=== PATIENT | male | born 1955 | race Caucasian/White ===

== ENCOUNTER 2024-06-21 05:18 | Observation (INO) ==
--- NOTE | 2024-05-29 12:37 | PAT Medication Instructions ---
Medication Instructions Date of Service May 29, 2024 Home Medications apixaban 5 mg tablet (Eliquis) 5 mg PO BID cholecalciferol (vitamin D3) 125 mcg (5,000 unit) tablet (Vitamin D3) 125 mcg PO DAILY ezetimibe 10 mg tablet 10 mg PO QAM furosemide 20 mg tablet (Lasix) 20 mg PO QAM loratadine 10 mg tablet 10 mg PO QAM losartan 25 mg tablet (Cozaar) 25 mg PO QAM metoprolol tartrate 100 mg tablet 150 mg PO QAM naltrexone 8 mg-bupropion 90 mg tablet,extended release (Contrave) 1 tab PO QAM potassium chloride 10 mEq tablet,extended release 10 meq PO DAILY secukinumab 25 mg/mL intravenous solution (Cosentyx) 150 mg IV .Q2WK tamsulosin 0.4 mg capsule 0.4 mg PO HS ASK your prescriber and surgeon secukinumab 25 mg/mL intravenous solution (Cosentyx) 150 mg IV .Q2WK apixaban 5 mg tablet (Eliquis) 5 mg PO BID(in order for spinal or epidural anesthesia, Eliquis needs to be stopped 72 hours/3 days before surgery. Please check if okay with doctor that prescribes this to you) DO NOT take the morning of surgery cholecalciferol (vitamin D3) 125 mcg (5,000 unit) tablet (Vitamin D3) 125 mcg PO DAILY furosemide 20 mg tablet (Lasix) 20 mg PO QAM loratadine 10 mg tablet 10 mg PO QAM losartan 25 mg tablet (Cozaar) 25 mg PO QAM naltrexone 8 mg-bupropion 90 mg tablet,extended release (Contrave) 1 tab PO QAM potassium chloride 10 mEq tablet,extended release 10 meq PO DAILY Take morning of surgery With a small sip of water, OTHERWISE NOTHING TO EAT OR DRINK AFTER MIDNIGHT: ezetimibe 10 mg tablet 10 mg PO QAM metoprolol tartrate 100 mg tablet 150 mg PO QAM Take evening before surgery tamsulosin 0.4 mg capsule 0.4 mg PO HS Other Notes If you have any questions please call us at [phone] or [phone] or [phone] or [phone]
--- NOTE | 2024-05-31 11:23 | Anesthesiology Consultation ---
Date of Service May 31, 2024 Assessment & Plan (1) Encounter for pre-operative examination: - Infectious disease screening: Per assessment on 05/29/24- No known recent infectious disease contacts or current infectious disease symptoms. - Apixaban/Eliquis instructions: Received previous notation from patient's Executive Asst dated 04/28/24 indicating recommendation to hold Eliquis 2 days prior to surgery. Patient was made aware subsequently at PAT visit 05/31/24 that anesthesia requests holding Eliquis 72 hours/3 days prior to surgery if okay with prescriber (he was instructor to check with prescriber and contact PAT if any issue). - Outpatient joint assessment: Pt currently scheduled for inpatient pathway. If surgeon requests review for outpatient joint pathway, patient is not recommended candidate for outpatient joint program from anesthesia standpoint based on available information. - Awaiting upcoming PCP (Thalia CASSIDY, appt 06/05), electrophysiology (Dr. Shen, appt 06/07) and cardiology (Dr. Benitez/RICHARDSON Sellers, appt 06/13) office visit notes. Chart Review Chart Review: Patient NOT seen in Pre Admission Testing History Surgery Operation Date: 06/21/24 13:55 Proposed Procedures p Right Total Knee Arthroplasty - Brian Seals MD Height/Weight Height: 5 ft 10 in Weight: 136.2 kg Allergies Allergy/AdvReac Type Severity Reaction Status Date / Time Penicillins Allergy Unknown Unknown Verified 05/29/24 11:47 Sulfa (Sulfonamide Allergy Unknown Rash Verified 05/29/24 11:47 Antibiotics) Medications Home Medications Medication Instructions Recorded Confirmed Last Taken apixaban 5 mg tablet (Eliquis) 5 mg PO BID 05/29/24 05/29/24 Unknown cholecalciferol (vitamin D3) 125 125 mcg PO DAILY 05/29/24 05/29/24 Unknown mcg (5,000 unit) tablet (Vitamin D3) ezetimibe 10 mg tablet 10 mg PO QAM 05/29/24 05/29/24 Unknown furosemide 20 mg tablet (Lasix) 20 mg PO QAM 05/29/24 05/29/24 Unknown loratadine 10 mg tablet 10 mg PO QAM 05/29/24 05/29/24 Unknown losartan 25 mg tablet (Cozaar) 25 mg PO QAM 05/29/24 05/29/24 Unknown metoprolol tartrate 100 mg tablet 150 mg PO QAM 05/29/24 05/29/24 Unknown naltrexone 8 mg-bupropion 90 mg 1 tab PO QAM 05/29/24 05/29/24 Unknown tablet,extended release (Contrave) potassium chloride 10 mEq 10 meq PO DAILY 05/29/24 05/29/24 Unknown tablet,extended release secukinumab 25 mg/mL intravenous 150 mg IV .Q2WK 05/29/24 05/29/24 Unknown solution (Cosentyx) tamsulosin 0.4 mg capsule 0.4 mg PO HS 05/29/24 05/29/24 Unknown Past Medical History Medical History BPH (benign prostatic hyperplasia) Dyslipidemia History of atrial fibrillation Hx cryo PVI with RF touchup of the left superior pulmonary vein as well as RF isolation of the right inferior pulmonary vein and atrial flutter ablation with RF CTI ablation (2022) Taking Eliquis Follows with Dr. Shen ([place]) History of COVID-19 (2020) Resolved HTN (hypertension) Obesity Taking Contrave Psoriasis Seasonal allergies Sleep apnea No device Exercise / Class Metabolic Activity II 4-5 Yardwork/Stairs/Walk up hill (one FS: No CP, no SOB) Past Surgical History Surgical History History of cardiac ablation for atrial fibrillation (2023) [facility] [place] Hx of colonoscopy Hx of knee surgery Tendon repair Hx of shoulder surgery Left Hx of tonsillectomy Past Anesthesia History No Hx of Anesthesia Complications and No Family Hx of Anesthesia Complications History of PONV No Hx of PONV and Hx of Motion Sickness (Remote hx) Social History Smoking Status: Never smoker Do You Dip or Chew Tobacco: No Hx Alcohol Use: Yes alcohol intake frequency: a few times a month Hx Substance Use: No substance use type: does not use Review of Systems Patient denies chest pain, shortness of breath, dyspnea on exertion, fever, chills, cough, wheezing, palpitations. Physical Exam Vital Signs BP 120/70 P 68 TEMP 98.3 SP02 97%RA RESP 16 Physical Full cervical extension range of motion. Full TMJ range of motion. TMD > 3.5 finger breaths Mallampati Score III Dentition: full upper plate, edentulous Lungs: clear throughout to auscultation Cardiac: regular rate and rhythm, no murmurs noted Spine: normal Carotid arteries: negative bruit Extremities: no LE edema Short thick neck Lab Results Anesthesia Preop Results Results Anesthesia Widget: WBC 5.83 K/ul (4.8-10.8) 05/31/24 Hgb 15.0 g/dl (14.0-18.0) 05/31/24 Hct 42.6 % (42.0-52.0) 05/31/24 Plt 245 K/uL (130-400) 05/31/24 Na 137 mmol/L (136-145) 05/31/24 K 4.4 mmol/L (3.5-5.1) 05/31/24 Cl 103 mmol/L (98-107) 05/31/24 CO2 31 mmol/L (21-32) 05/31/24 BUN 8 mg/dl (6-23) 05/31/24 Creat 0.87 mg/dl (0.6-1.4) 05/31/24 Glucose Level 105 mg/dl (70-99(Fasting)) H 05/31/24 PT 11.2 Seconds (9.0-12.0) 05/31/24 PTT 30 Seconds (21-31) 05/31/24 INR 1.0 (0.9-1.1) 05/31/24 Urine Color Yellow 05/31/24 Urine Appearance Clear (Clear) 05/31/24 Urine pH 6.5 (4.5-7.5) 05/31/24 Urine Specific [place] 1.015 (1.000-1.030) 05/31/24 Urine Protein Negative (Negative) 05/31/24 Urine Glucose (UA) Negative (Negative) 05/31/24 Urine Ketones Negative (Negative) 05/31/24 Urine Blood Negative (Negative) 05/31/24 Urine Nitrite Negative (Negative) 05/31/24 Urine Bilirubin Negative (Negative) 05/31/24 Urine Urobilinogen Negative (Negative) 05/31/24 Urine Leukocyte Esterase Negative (Negative) 05/31/24 Blood Type O Negative 05/31/24 Antibody Screen NEGATIVE 05/31/24 Testing Electrocardiogram Date: 05/31/24 NSR at 67bpm. "Normal ECG" Chest X-Ray Date: 05/31/24 Findings: + NAD Echocardiogram Date: 03/19/22 EF 55-60%. No pericardial effusion. Limited study.
--- NOTE | 2024-06-19 19:22 | History & Physical Report ---
Date of Service June 19, 2024 Assessment & Plan (1) Bilateral primary osteoarthritis of knee: Plan: Bilateral knee osteoarthritis right greater than left end-stage on right tricompartmental disease. Proceed with right total knee replacement. Possibility may need a more constrained polyethylene to help with stability and cemented stem on the tibia. History of Present Illness Primary Care Provider: Thalia Weinberg NP Patient denies headaches, sweats, fevers, chills, double vision, blurred vision, cough, sore throat, dysphagia, chest pain, sob at rest but had some shortness of breath with running a short distance or mowing or shoveling, wheezing, n/v/d/c, numbness, tingling, fatigue, urinary symptoms, mood disorders. ROS positive for sleep apnea/snoring, abnormal bruising, arthritis multiple areas of the spine, enlarged prostate, patient's father had severe reaction to anesthesia. Allergies Allergy/AdvReac Type Severity Reaction Status Date / Time Penicillins Allergy Unknown Unknown Verified 05/29/24 11:47 Sulfa (Sulfonamide Allergy Unknown Rash Verified 05/29/24 11:47 Antibiotics) Home Medications Medication Instructions Recorded Confirmed Type apixaban 5 mg tablet (Eliquis) 5 mg PO BID 05/29/24 05/29/24 History cholecalciferol (vitamin D3) 125 125 mcg PO DAILY 05/29/24 05/29/24 History mcg (5,000 unit) tablet (Vitamin D3) ezetimibe 10 mg tablet 10 mg PO QAM 05/29/24 05/29/24 History furosemide 20 mg tablet (Lasix) 20 mg PO QAM 05/29/24 05/29/24 History loratadine 10 mg tablet 10 mg PO QAM 05/29/24 05/29/24 History losartan 25 mg tablet (Cozaar) 25 mg PO QAM 05/29/24 05/29/24 History metoprolol tartrate 100 mg tablet 150 mg PO QAM 05/29/24 05/29/24 History naltrexone 8 mg-bupropion 90 mg 1 tab PO QAM 05/29/24 05/29/24 History tablet,extended release (Contrave) potassium chloride 10 mEq 10 meq PO DAILY 05/29/24 05/29/24 History tablet,extended release secukinumab 25 mg/mL intravenous 150 mg IV .Q2WK 05/29/24 05/29/24 History solution (Cosentyx) tamsulosin 0.4 mg capsule 0.4 mg PO HS 05/29/24 05/29/24 History Past Med/Surg History Problem List (Updated 06/19/24 @ 19:21 by Brian Seals MD) Bilateral primary osteoarthritis of knee Encounter for pre-operative examination Medical History History of COVID-19 (2020) Resolved Seasonal allergies Sleep apnea No device Psoriasis BPH (benign prostatic hyperplasia) Obesity Taking Contrave Dyslipidemia HTN (hypertension) History of atrial fibrillation Hx cryo PVI with RF touchup of the left superior pulmonary vein as well as RF isolation of the right inferior pulmonary vein and atrial flutter ablation with RF CTI ablation (2022) Taking Eliquis Follows with Dr. Shen ([place]) Surgical History Hx of colonoscopy History of cardiac ablation for atrial fibrillation (2023) [facility] Hx of tonsillectomy Hx of knee surgery Tendon repair Hx of shoulder surgery Left Social History Smoking Status: Never smoker Second Hand Exposure: No; Do You Dip or Chew Tobacco: No; Tobacco Cessation Education Requested by Patient: No Hx Alcohol Use: Yes Hx Substance Use: No Preferred Language: [place] Communication Ability: Effective Promotional Advertising Assistant Required: No Beliefs That Will Affect Care: None Current Living Situation: Family Current Living Situation Comment: son lives w/ him Other Information That Helps Us Care for You: No Feels Safe at Home: Yes Safety Concerns: Feels Safe At This Time Assistive Devices: Denture - Upper, Glasses and Walker Assistive Devices Comment: prn walker Review of Systems All systems reviewed & are unremarkable except as noted in HPI & below Physical Exam Constitutional: WD/WN, vitals as above Respiratory: normal respiratory effort; no respiratory distress Cardiovascular: Rate/Rhythm: regular rate and regular rhythm Musculoskeletal: Bilateral knees demonstrate varus knees bilaterally with mild effusions with medial joint line and patellar tenderness on the right. No surgical scars on the right patient has surgical scars on the left. There is moderate patella c repitus on the right and mild on the left. There is an extensor lag on the left of 10 to 20 degrees and normal on the right. More pain with range of motion of the right knee than the left. Range of motion 20 through 110 degrees right and 15 to 120 degrees left distal neurovascular exam in tact. Skin: no rashes, warm and dry Neurologic: normal touch/pain/proprioception Psychiatric: A+Ox3, euthymic affect Results & Data Diagnostic Findings X-rays right knee demonstrate very severe arthritis with [id number] medial and lateral compartments and subluxation of the femur medially on the tibia and bone loss medially.
[2024-06-21] MEDS: ACETAMINOPHEN 500 MG TAB PO SCH ×2 (05:52→13:25)
[2024-06-21] MEDS: CeleBREX 200 MG CAP PO SCH (05:53)
[2024-06-21] MEDS: FAMOTIDINE 20 MG TAB PO SCH (05:53)
[2024-06-21] MEDS: METOCLOPRAMIDE HCL 10 MG TABLET PO SCH (05:53)
[2024-06-21] MEDS: LR 60ML/HR IV SCH (05:53)
[2024-06-21] MEDS: GABAPENTIN 300 MG CAP PO SCH (05:53)
[2024-06-21] MEDS: dexAMETHasone**PF** 10 MG/ML VIAL IV SCH (05:53)
[2024-06-21] MEDS: LR 500ML BOLUS, THEN 15ML/HR IV SCH (05:54)
[2024-06-21] MEDS ORDERED: BUPIVACAINE 0.5 % 5 MG/1 ML PF 10ML VIAL ONE (06:28)
[2024-06-21] MEDS ORDERED: ROPIVACAINE 0.5% 5 MG/ML 30 ML VIAL ONE (06:28)
[2024-06-21] MEDS ORDERED: HYDROmorphone INJ 1 MG/ML SYRINGE IV PRN (06:39)
[2024-06-21] MEDS ORDERED: ATROPINE SULFATE 0.1 MG/ML 10ML SYR IV PRN (06:39)
[2024-06-21] MEDS ORDERED: ePHEDrine sulfate 50 MG/ML AMP IV PRN (06:39)
[2024-06-21] MEDS ORDERED: ONDANSETRON INJ 2 MG/ML 2 ML VIAL IV PRN ×2 (06:39→13:08)
[2024-06-21] MEDS ORDERED: fentaNYL citrate PF 100 MCG/2 ML VIAL IV PRN (06:39)
--- NOTE | 2024-06-21 06:42 | Anesthesiology Consultation ---
Date of Service June 21, 2024 Assessment & Plan Chart Review Chart Review: Acceptable Risk for Surgery Consults Requested none ASA ASA3 Proposed Anesthesia Anesthesia Type: MAC Spinal Regional Regional Laterality: Right Site: Adductor Canal History Surgery Operation Date: 06/21/24 07:00 Proposed Procedures p Right Total Knee Arthroplasty - Brian Seals MD Height/Weight Height: 5 ft 10 in Weight: 136.9 kg Allergies Allergy/AdvReac Type Severity Reaction Status Date / Time Penicillins Allergy Unknown Unknown Verified 06/21/24 05:38 Sulfa (Sulfonamide Allergy Unknown Rash Verified 06/21/24 05:38 Antibiotics) Medications Home Medications Medication Instructions Recorded Confirmed Last Taken apixaban 5 mg tablet (Eliquis) 5 mg PO BID 05/29/24 06/21/24 06/16/24 20:00 cholecalciferol (vitamin D3) 125 125 mcg PO DAILY 05/29/24 06/21/24 06/19/24 09:00 mcg (5,000 unit) tablet (Vitamin D3) ezetimibe 10 mg tablet 10 mg PO QAM 05/29/24 06/21/24 06/20/24 09:00 furosemide 20 mg tablet (Lasix) 20 mg PO QAM 05/29/24 06/21/24 06/20/24 09:00 loratadine 10 mg tablet 10 mg PO QAM 05/29/24 06/21/24 06/20/24 09:00 losartan 25 mg tablet (Cozaar) 25 mg PO QAM 05/29/24 06/21/24 06/20/24 09:00 metoprolol tartrate 100 mg tablet 150 mg PO QAM 05/29/24 06/21/24 06/21/24 03:00 naltrexone 8 mg-bupropion 90 mg 1 tab PO QAM 05/29/24 06/21/24 06/18/24 09:00 tablet,extended release (Contrave) potassium chloride 10 mEq 10 meq PO DAILY 05/29/24 06/21/24 06/20/24 09:00 tablet,extended release secukinumab 25 mg/mL intravenous 150 mg IV .Q2WK 05/29/24 06/21/24 06/03/24 solution (Cosentyx) tamsulosin 0.4 mg capsule 0.4 mg PO HS 05/29/24 06/21/24 06/20/24 09:00 Active Medications Generic Name Dose Route Start Last Admin Trade Name Aaron PRN Reason Stop Dose Admin Acetaminophen 1,000 mg 06/21/24 06:00 06/21/24 05:52 Acetaminophen 500 Mg Tab PO 06/21/24 18:00 1,000 mg PREOP JAY Administration Celecoxib 200 mg 06/21/24 06:00 06/21/24 05:53 Celebrex 200 Mg Cap PO 06/21/24 18:00 200 mg PREOP JAY Administration Dexamethasone Sodium Phosphate 10 mg 06/21/24 06:00 06/21/24 05:53 DexamethasonePf 10 Mg/Ml Vial IV 06/21/24 18:00 10 mg PREOP JAY Administration Famotidine 20 mg 06/21/24 06:00 06/21/24 05:53 Famotidine 20 Mg Tab PO 06/21/24 18:00 20 mg PREOP JAY Administration Gabapentin 300 mg 06/21/24 06:00 06/21/24 05:53 Gabapentin 300 Mg Cap PO 06/21/24 18:00 300 mg PREOP JAY Administration Lactated Ringer's 1,000 mls @ 15 mls/hr 06/21/24 06:00 06/21/24 05:54 Lr IV 06/21/24 18:00 15 mls/hr .Q24H JAY Administration Lactated Ringer's 1,000 mls @ 60 mls/hr 06/21/24 06:00 06/21/24 05:53 Lr IV 06/21/24 22:39 Not Given .[id number] JAY Metoclopramide HCl 10 mg 06/21/24 06:00 06/21/24 05:53 Metoclopramide Hcl 10 Mg Tablet PO 06/21/24 18:00 10 mg PREOP JAY Administration NPO Date Last Intake of Fluids: 06/20/24 Time Last Intake of Fluids: 21:30 Last Intake of Fluids Comment: sip of water 0300 w/med Date Last Intake of Solids: 06/20/24 Time Last Intake of Solids: 21:30 Past Medical History Medical History History of COVID-19 (2020) Resolved Seasonal allergies Sleep apnea No device Psoriasis BPH (benign prostatic hyperplasia) Obesity Taking Contrave Dyslipidemia HTN (hypertension) History of atrial fibrillation Hx cryo PVI with RF touchup of the left superior pulmonary vein as well as RF isolation of the right inferior pulmonary vein and atrial flutter ablation with RF CTI ablation (2022) Taking Eliquis Follows with Dr. Shen ([place]) Exercise / Class Metabolic Activity III < 4 Walking/Shop/Light housework Past Surgical History Surgical History Hx of colonoscopy History of cardiac ablation for atrial fibrillation (2023) [facility] Hx of tonsillectomy Hx of knee surgery Tendon repair Hx of shoulder surgery Left Past Anesthesia History No Hx of Anesthesia Complications History of PONV No Hx of PONV Social History Smoking Status: Never smoker Do You Dip or Chew Tobacco: No Hx Alcohol Use: Yes alcohol intake frequency: a few times a month Hx Substance Use: No substance use type: does not use Physical Exam Vital Signs Last Vital Signs Temp 37.1 C 06/21/24 05:30 Pulse 68 06/21/24 05:30 Resp 20 06/21/24 05:30 BP 151/71 H 06/21/24 05:30 Pulse Ox 94 06/21/24 05:30 O2 Del Method Room Air 06/21/24 05:30 Constitutional + morbidly obese ENMT Mouth: + edentulous; no TMJ abnormality Thyromental Distance: > or= 3.5 Finger Breadths Mallampati Class: II Neck normal visual inspection, + short neck, + thick neck and + facial hair Respiratory normal respiratory effort Auscultation: + diminished lung sounds (Distant ) Cardiovascular Rate/Rhythm: regular rate and regular rhythm Neurologic moves all extremities Psychiatric Orientation: alert and oriented x 3 Testing Electrocardiogram Date: 05/31/24 NSR at 67bpm. "Normal ECG" Chest X-Ray Date: 05/31/24 Findings: + NAD Echocardiogram Date: 03/19/22 EF 55-60%. No pericardial effusion. Limited study.
[2024-06-21] MEDS ORDERED: PROPOFOL IV EMULSION 10 MG/ML 20 ML VIAL IV ONE (06:47)
[2024-06-21] MEDS ORDERED: MIDAZOLAM HCL 1 MG/ML 2ML VIAL ONE (06:47)
[2024-06-21] MEDS ORDERED: LIDOCAINE 2% 2 ML VIAL/AMP(20MG/ML) INFIL ONE (06:47)
[2024-06-21] MEDS ORDERED: fentaNYL citrate PF 100 MCG/2 ML VIAL ONE (06:47)
[2024-06-21] MEDS: TRANEXAMIC ACID 1,000 MG **IV Pre-op IV SCH (06:59)
--- NOTE | 2024-06-21 07:00 | History & Physical Bridge Note ---
Date of Service June 21, 2024 History & Physical Bridge Note I have examined the patient, reviewed the History & Physical and in the interval since the performance of the History & Physical I have noted the following changes of clinical significance: no changes noted
[2024-06-21] MEDS: ceFAZolin 3000MG 3,000 MG/72.5 ML BAG IV SCH (07:17)
[2024-06-21] MEDS ORDERED: KETAMINE HCL 10MG/ML SYR ONE (07:29)
[2024-06-21] MEDS ORDERED: ROCURONIUM BROMIDE 10 MG/ML 5 ML VIAL IV ONE (07:36)
[2024-06-21] MEDS: ORTHO JOINT ANESTHETIC ONE (07:50)
[2024-06-21] MEDS: ROPIVACAINE 0.5% HCL/PF 246 MG, Ketorolac (*for OR use only*) 30 MG in SODIUM CHLORIDE ... INFIL SCH (07:50)
[2024-06-21] MEDS ORDERED: PHENYLEPHRINE HCL 10 MG/ML VIAL ONE (08:00)
[2024-06-21] MEDS ORDERED: SUCCINYLCHOLINE CHLORIDE 20 MG/ML 10 ML VIAL IV ONE (08:14)
[2024-06-21] MEDS ORDERED: GLYCOPYRROLATE 0.2 MG/ML VIAL ONE (08:14)
[2024-06-21] MEDS ORDERED: PHENYLEPHRINE 100MCG/ML 5ML SYR ONE (08:14)
[2024-06-21] MEDS ORDERED: VASOPRESSIN 20 UNIT/ML VIAL ONE (09:26)
[2024-06-21] MEDS: TRANEXAMIC ACID 1,000 MG **IV Intra-op IV SCH (09:56)
[2024-06-21] MEDS ORDERED: SUGAMMADEX SODIUM 200 MG/2 ML VIAL IV ONE (09:57)
--- NOTE | 2024-06-21 11:00 | Operative Report ---
Post Operative Report Pre & Post Diagnosis Operation Date: 06/21/24 07:00 Pre-Op Diagnosis: Right Knee Degenerative Joint Disease, obesity BMI 43.3 Post-Op Diagnosis: Right Knee Degenerative Joint Disease, obesity BMI 43.3 I identified the patient and participated in the time-out.: Yes Procedure Operation Date: 06/21/24 07:00 Actual Procedures p Right Total Knee Arthroplasty(Right) - Brian Seals MD , Application priscila and Acticoat superficial wound VAC, increased difficulty obesity BMI 43.3 Surgeon Brian Seals MD Electronics Warfare Technician Dwain MEJIA Estimated Blood Loss 30 Findings Consistent with Post-Op Diagnosis Specimens Bone cuts Drains 2 Hemovac Anesthesia Type General Regional Complications none Disposition Disposition: Recovery Room Indications 68-year-old male with severe end-stage osteoarthritis right knee and end-stage osteoarthritis left knee with severe tricompartmental osteoarthritis [id number] with some patellofemoral malalignment and [id number] medial and lateral compartments with marked subluxation of the femur medial in the tibia with bone loss more medial than lateral and also posterior tibia. Description of Procedure Patient was taken to the operating room placed supine on the operating table and anesthetized under spinal MAC regional block anesthesia however general anesthesia had to be added prior to starting the procedure.. Exam under anesthesia demonstrated an obese thigh and leg with 20 degree flexion contracture and further flexion to about 100 degrees. There was some pseudo laxity medially and the leg can be corrected to neutral. A pneumatic tourniquet was placed about the thigh of the right lower extremity. The right lower extremity was prepped and draped in usual sterile fashion. The leg was elevated exsanguinated with an Esmarch bandage and the pneumatic tourniquet was raised to 350 mm mercury. An anterior incision was made across the right knee. The skin was incised longitudinally. Patient had edematous tissue and some weeping edema after the incision was made noted. He also had chronic prepatellar bursitis with multiple bands of scarred bursal tissue in the prepatellar area of and the areas of this pathologic bursa were resected. Subcutaneous flaps were elevated and an incision was made through the medial retinaculum extending up into the mid third of the quadriceps tendon and extended down to the medial tibial tubercle. Intra-articular findings demonstrated there was a large calcification in the synovium in the suprapatellar pouch there was a large loose body in the lateral gutter. There were large loose bodies posterior medial compartment. There were massive osteophytes and complete notch stenosis with [id number] across both femoral condyles and the tibia both sides with more bone loss posterior medially on the tibia chronic meniscal degenerative tears and chronic ACL tear. The knee was exposed by excising the infrapatellar fat pad, excising the meniscal remnants. Any inflamed synovial tissue was resected. All loose bodies were removed. The fat pad over the anterior femur was resected for placement of the component in that area. Some of the very large superior osteophytes around the femur were removed with a large rongeur. Hemostasis was obtained throughout the dissection with aqua mantis. The lateral synovial bands were released. To obtain exposure the patella was first addressed. Patella had large osteophytes some of which were excised with the rongeur and the rest removed with the cut. A subperiosteal peel lateral release was performed around the lateral side of the patella and a freehand cut technique was used to resect the surface. The bone was very hard. Patella was sized for 35 x 9 symmetrical patella and any excess lateral facet of the patella was beveled off with a rongeur to prevent any impingement issues. Attention was then taken back to the femur. The femur was exposed. The large notch osteophytes were removed with a curved osteotome exposing the PCL which was released off the femur. Intramedullary drill hole was made into the femoral canal followed by the guide cheryl and setting the distal femoral cutting guide to resect +2 additional cut due to the flexion contracture at a 5 degree valgus cut. The distal femoral cut was made with an oscillating saw. The sizing guide was placed and the drill hole was placed in 3 degrees of external rotation to match the epicondylar axis. Femur sized for a size 10. The 4-in-1 cutting block was applied for size 10. The anterior and posterior chamfer cuts were made. All osteophytes were removed. The tibia was exposed. The external tibial cutting guide was placed and adjusted for alignment with the tibial shaft and slope. He had adjusted some of the slope slightly more than normal to account for the significant bone loss posteriorly both medially and laterally with more bone loss posterior medial on the tibia. This cut was made just at the level of the most deficient side medially. the proximal cut was made with the oscillating saw. All osteophytes were resected. The lamina resource conservation manager was used to assess ligamentous b alance and the ligaments were balanced in extension and flexion. Some further medial and posterior medial releases were required. The tibia was reexposed and measured for a size G right tibial component. The trial was externally rotated in line with the tibial tubercle and the fixation pins were drilled. The proximal tibia was fashioned with the drill and punch. The size 10 right PS femoral trial was inserted. The notch cut was made with the saws. The collet was placed. The trial CPS inserts were used. The 14 mm insert gave balanced ligaments through full range of motion. The patella tracked centrally. the trials were removed. The orthomix anesthetic cocktail was injected per protocol. The knee was then copiously irrigated with pulsatile lavage saline solution. The final components were cemented with Refobacin bone cement. The final components were Delia persona 10 right standard posterior stabilized femoral component with the G right tibial component with a 14 x 30 mm cemented stem with a 14 mm CPS right polyethylene tibial component with a 35 x 9 mm polyethylene patella symmetrical implant. After the cement cured with the knee in full extension the Betadine soak was used per protocol. The tourniquet was let down and we assess for bleeders and perform hemostasis as needed with the aqua mantis. The knee joint was copiously irrigated with pulsatile lavage saline solution . 2 drains were brought out laterally and connected to a Hemovac. The quadriceps tendon and medial retinaculum were closed with interrupted #2 FiberWire sutures around the medial retinaculum distal quad tendon and apex of the quad tendon split superiorly and an additional suture at the level of the tibial polyethylene. Starting superiorly a 0 strata fix running locking suture was used to run the quad tendon from the superior incision down to the inferior pole patella level. Additional #1 Vicryl [id number] sutures were placed below that level completely repairing the remainder of the retinaculum adjacent to the patella tendon. The knee was taken through a full range of motion which was 0 through 130 degrees and the repair was secure. The subcutaneous tissues were closed with 2-0 Vicryl sutures and skin was closed with surgical jo-ann.A priscila and Acticoat superficial wound VAC was applied and the patient tolerated the procedure well. Dwain MEJIA my physician behavioral modification assistant participated as registered sales assistant and was an integral part in all aspects of the procedure, he assisted in soft tissue retraction, instrument management ,leg positioning, the closure, application of the wound VAC and will participate in the postoperative care of the patient. There was an increased level difficulty due to the patient's obesity and severity of the arthritis which added 40 minutes to the procedure. I attest to the content of the Intraoperative Record and any orders documented therein. Any exceptions are noted below.
--- NOTE | 2024-06-21 11:19 | XRay Report ---
XR knee RT 1 or 2V routine CLINICAL HISTORY: Surgical Post Op COMPARISON: None FINDINGS: Right knee prosthesis shows no hardware complication. There is expected soft tissue gas. P ostoperative drain is present. Skin jo-ann are present. IMPRESSION: Unremarkable postoperative exam. ACT 112: Negative or not required by law. Electronically signed by: Ziggy Wren M.D. 06/21/2024 11:18 AM
[2024-06-21] MEDS ORDERED: ALBUMIN HUMAN 5% 12.5 GM/250 ML VIAL IV ONE (11:53)
[2024-06-21] MEDS: ALBUMIN 5% 250 ML IV ONE (12:07)
[2024-06-21] MEDS ORDERED: NALOXONE HCL 0.4 MG/1 ML VIAL/CARP IV PRN (13:08)
[2024-06-21] MEDS ORDERED: MAGNESIUM HYDROXIDE SUSP 30 ML UDC PO PRN (13:08)
[2024-06-21] MEDS ORDERED: KETOROLAC TROMETHAMINE 15 MG/ML VIAL IV PRN (13:08)
[2024-06-21] MEDS ORDERED: ALUMINUM/MAGNESIUM SUSP 30 ML UDC PO PRN (13:08)
[2024-06-21] MEDS ORDERED: diphenhydrAMINE Capsule 25 MG CAP PO PRN (13:08)
[2024-06-21] MEDS ORDERED: METOCLOPRAMIDE HCL INJ 5 MG/ML 2 ML VIAL IV PRN (13:08)
[2024-06-21] MEDS ORDERED: oxyCODONE HCL IR 5 MG TAB (IMMEDIATE RELEASE) PO PRN (13:08)
[2024-06-21] MEDS ORDERED: bisacodyL 10 MG SUPP PR PRN (13:08)
[2024-06-21] MEDS ORDERED: HYDROmorphone INJ 0.5 MG/0.5 ML SYR IV PRN (13:08)
[2024-06-21] MEDS ORDERED: SECUKINUMAB IV SCH (13:08)
--- NOTE | 2024-06-21 13:16 | Anesthesiology Progress Note ---
Date of Service June 21, 2024 Anesthesia Post Procedure Vital Signs Vital Signs: Temp Pulse Pulse Resp BP Pulse Ox O2 Del Method 06/21/24 13:08 36.5 C 75 16 105/62 95 Nasal Cannula 06/21/24 12:35 99/54 L 06/21/24 12:30 36.4 C L 74 17 97/56 L 95 Nasal Cannula 06/21/24 12:20 68 15 101/57 L 95 Nasal Cannula 06/21/24 12:10 65 15 93/54 L 96 Nasal Cannula 06/21/24 12:00 67 15 100/50 L 97 Nasal Cannula 06/21/24 11:50 69 14 98/52 L 95 Nasal Cannula 06/21/24 11:40 70 15 90/54 L 93 Nasal Cannula 06/21/24 11:30 72 16 97/51 L 94 Nasal Cannula 06/21/24 11:20 72 14 92/50 L 94 Nasal Cannula 06/21/24 11:10 73 14 95/51 L 95 Oxymask 06/21/24 11:00 36.4 C L 71 16 95/53 L 96 Oxymask 06/21/24 10:55 99/50 L 06/21/24 10:50 74 18 89/51 L 94 Oxymask 06/21/24 10:42 36.9 C 77 18 98/51 L 95 Oxymask 06/21/24 05:30 37.1 C 68 20 151/71 H 94 Room Air O2 Flow Rate 06/21/24 13:08 2 06/21/24 12:35 06/21/24 12:30 2 06/21/24 12:20 2 06/21/24 12:10 2 06/21/24 12:00 2 06/21/24 11:50 2 06/21/24 11:40 2 06/21/24 11:30 2 06/21/24 11:20 2 06/21/24 11:10 4 06/21/24 11:00 11 06/21/24 10:55 06/21/24 10:50 11 06/21/24 10:42 11 06/21/24 05:30 Transfer of Care Handoff Completed per policy Notes Mental Status: alert / awake / arousable Patient Amnestic to Procedure: Yes Nausea / Vomiting: adequately controlled Pain: adequately controlled Airway Patency, RR, SpO2: stable & adequate BP & HR: stable & adequate Hydration State: stable & adequate Neuraxial Anesthesia: was administered and sensory block is resolving Anesthetic Complications: no major complications apparent and Pt Satisfied with anesthetic care Notes: brian GUERRIER, no pain
[2024-06-21] MEDS: SODIUM CHLORIDE 0.9% 1,000 ML IV SCH (13:25)
[2024-06-21] MEDS: ceFAZolin 2000MG 2,000 MG/15 ML SYR IV SCH (15:20)
[2024-06-21] MEDS: TRANEXAMIC ACID / 0.7% NACL 1,000 MG/100 ML BAG IV SCH (16:44)
[2024-06-21] MEDS: DOCUSATE SODIUM 100 MG CAP PO SCH (20:39)
[2024-06-21] MEDS: SENNA 8.6 MG TAB PO SCH (20:39)
[2024-06-21] MEDS: TAMSULOSIN HCL 0.4 MG CAP PO SCH (20:40)
--- NOTE | 2024-06-21 22:14 | Hospitalist Consultation ---
Date of Consultation June 21, 2024 Assessment & Plan (1) Bilateral primary osteoarthritis of knee: (2) Seasonal allergies: (3) Sleep apnea: (4) BPH (benign prostatic hyperplasia): (5) Dyslipidemia: (6) HTN (hypertension): (7) History of atrial fibrillation: (8) Cardiomyopathy: Plan 68 year old male with PMHx that includes A-flutter, tachycardia induced cardiomyopathy, HTN, HLD, and BPH is POD#0 s/p right TKA, seen for medical consult at the request of surgical team: #Bilateral OA of Knees: S/p right TKA, POD#0 Pain control per primary PT/OT eval and treat #H/o A-fib/flutter // #Tachycardia induced cardiomyopathy: Continue Metoprolol, Lasix Resume Eliquis 06/22 #HTN: Continue Losartan #HLD: Continue Zetia #BPH: Continue Tamsulosin #DAVE: CPAP declined VTE ppx: Eliquis (resume 06/22) History of Present Illness Attending Physician: Brian Seals MD History of Present Illness 68 year old male with PMHx that includes A-flutter, tachycardia induced cardiomyopathy, HTN, HLD, and BPH is POD#0 s/p right TKA, seen for medical consult at the request of surgical team. Patient seen at bedside, states that pain is well controlled, no acute complaints/concerns at this time. Medical history reviewed, patient denies h/o diabetes. Confirms DAVE diagnosis but does not use CPAP. Denies chest pain, SOB, palpitations, CALLAHAN, dizziness, changes in vision, abdominal pain. Allergies Allergy/AdvReac Type Severity Reaction Status Date / Time Penicillins Allergy Unknown Unknown Verified 06/21/24 05:38 Sulfa (Sulfonamide Allergy Unknown Rash Verified 06/21/24 05:38 Antibiotics) Home Medications Medication Instructions Recorded Confirmed Type apixaban 5 mg tablet (Eliquis) 5 mg PO BID 05/29/24 06/21/24 History cholecalciferol (vitamin D3) 125 125 mcg PO DAILY 05/29/24 06/21/24 History mcg (5,000 unit) tablet (Vitamin D3) ezetimibe 10 mg tablet 10 mg PO QAM 05/29/24 06/21/24 History furosemide 20 mg tablet (Lasix) 20 mg PO QAM 05/29/24 06/21/24 History loratadine 10 mg tablet 10 mg PO QAM 05/29/24 06/21/24 History losartan 25 mg tablet (Cozaar) 25 mg PO QAM 05/29/24 06/21/24 History naltrexone 8 mg-bupropion 90 mg 1 tab PO QAM 05/29/24 06/21/24 History tablet,extended release (Contrave) potassium chloride 10 mEq 10 meq PO DAILY 05/29/24 06/21/24 History tablet,extended release secukinumab 25 mg/mL intravenous 150 mg IV .Q2WK 05/29/24 06/21/24 History solution (Cosentyx) tamsulosin 0.4 mg capsule 0.4 mg PO HS 05/29/24 06/21/24 History acetaminophen 500 mg tablet 1,000 mg (2 x 500 mg) PO Q8H #90 06/21/24 Rx (Tylenol Extra Strength) tabs cefadroxil 500 mg capsule 500 mg PO Q12H 14 days #28 caps 06/21/24 Rx metoprolol succinate 50 mg 150 mg PO DAILY 06/21/24 06/21/24 History tablet,extended release 24 hr (Toprol XL) oxycodone 5 mg tablet 5 mg PO Q4H PRN pain #20 tabs 06/21/24 Rx Patient History Medical History History of COVID-19 (2020) Resolved Seasonal allergies Sleep apnea No device Psoriasis BPH (benign prostatic hyperplasia) Obesity Taking Contrave Dyslipidemia HTN (hypertension) History of atrial fibrillation Hx cryo PVI with RF touchup of the left superior pulmonary vein as well as RF isolation of the right inferior pulmonary vein and atrial flutter ablation with RF CTI ablation (2022) Taking Eliquis Follows with Dr. Shen ([place]) Surgical History Hx of colonoscopy History of cardiac ablation for atrial fibrillation (2023) [facility] Hx of tonsillectomy Hx of knee surgery Tendon repair Hx of shoulder surgery Left Social History Smoking Status: Never smoker Second Hand Exposure: No; Do You Dip or Chew Tobacco: No; Tobacco Cessation Education Requested by Patient: No Hx Alcohol Use: Yes Hx Substance Use: No Preferred Language: Syriac Communication Ability: Effective Stitching Machine Feeder Or Offbearer Required: No Beliefs That Will Affect Care: None Current Living Situation: Family Current Living Situation Comment: son lives w/ him Other Information That Helps Us Care for You: No Feels Safe at Home: Yes Safety Concerns: Feels Safe At This Time Assistive Devices: Denture - Upper, Glasses and Walker Assistive Devices Comment: prn walker Review of Systems Review of Systems: as per HPI Physical Exam Physical Exam: Constitutional: no acute distress HEENT: NCAT, no conjunctival injection CV: RRR, no murmurs appreciated Resp: Lungs CTAB, no increased work of breathing GI: nondistended, normal bowel sounds MSK: no gross deformities Skin: warm, dry, no rash appreciated Neuro: alert, oriented, no focal neurologic deficit appreciated Results & Data Results & Data Vital Signs (Past 12 Hours) Vital Signs Temp Pulse Pulse Resp BP Pulse Ox O2 Del Method 06/21/24 19:54 36.9 C 65 18 123/77 96 Room Air 06/21/24 16:13 36.6 C 70 16 125/73 96 Room Air 06/21/24 15:05 36.6 C 63 16 124/65 98 Nasal Cannula 06/21/24 13:59 75 16 101/60 95 Nasal Cannula 06/21/24 13:31 36.6 C 78 18 106/65 93 Nasal Cannula 06/21/24 13:08 36.5 C 75 16 105/62 95 Nasal Cannula 06/21/24 12:35 99/54 L 06/21/24 12:30 36.4 C L 74 17 97/56 L 95 Nasal Cannula 06/21/24 12:20 68 15 101/57 L 95 Nasal Cannula 06/21/24 12:10 65 15 93/54 L 96 Nasal Cannula 06/21/24 12:00 67 15 100/50 L 97 Nasal Cannula 06/21/24 11:50 69 14 98/52 L 95 Nasal Cannula 06/21/24 11:40 70 15 90/54 L 93 Nasal Cannula 06/21/24 11:30 72 16 97/51 L 94 Nasal Cannula 06/21/24 11:20 72 14 92/50 L 94 Nasal Cannula 06/21/24 11:10 73 14 95/51 L 95 Oxymask 06/21/24 11:00 36.4 C L 71 16 95/53 L 96 Oxymask 06/21/24 10:55 99/50 L 06/21/24 10:50 74 18 89/51 L 94 Oxymask 06/21/24 10:42 36.9 C 77 18 98/51 L 95 Oxymask O2 Flow Rate 06/21/24 19:54 06/21/24 16:13 06/21/24 15:05 2 06/21/24 13:59 2 06/21/24 13:31 2 06/21/24 13:08 2 06/21/24 12:35 06/21/24 12:30 2 06/21/24 12:20 2 06/21/24 12:10 2 06/21/24 12:00 2 06/21/24 11:50 2 06/21/24 11:40 2 06/21/24 11:30 2 06/21/24 11:20 2 06/21/24 11:10 4 06/21/24 11:00 11 06/21/24 10:55 06/21/24 10:50 11 06/21/24 10:42 11 Resident Activity Tracking Resident Involvement: Resident Care Provided Care Provided: Adult Hospital Medicine
[2024-06-22 03:38] VITALS: RESP 16
[2024-06-22 06:11] LABS: Hematocrit (blood only) 35.7 % (42.0-52.0); Hemoglobin 12.4 g/dl (14.0-18.0); Mean Corpuscular Hemoglobin 31.6 pg (25.0-34.0); Mean Corpuscular Hgb Conc 34.7 g/dL (32.0-36.0); Mean Corpuscular Volume 91.1 fL (80.0-100.0); Mean Platelet Volume 9.2 fL (9.4-12.4); Platelet Count 243 K/uL (130-400); RDW Coefficient of Variation 13.7 % (11.5-14.5); Red Blood Count 3.92 M/uL (4.70-6.10); White Blood Count 13.15 K/ul (4.8-10.8)
[2024-06-22 06:26] LABS: BUN Creatinine Ratio 20.9 (10-20); Calcium 8.2 mg/dl (8.6-10.3); Creatinine Clr Calc Pharmacy 117.8 ml/min; Potassium 4.2 mmol/L (3.5-5.1)
[2024-06-22 07:32] VITALS: BP 147/79; PULSE 61; TEMP 97.9; O2SAT 96
[2024-06-22] MEDS: APIXABAN 5 MG TABLET PO SCH (08:12)
[2024-06-22] MEDS: LOSARTAN POTASSIUM 25 MG TAB PO SCH (08:12)
[2024-06-22] MEDS: EZETIMIBE 10 MG TAB PO SCH (08:12)
[2024-06-22] MEDS: LORATADINE 10 MG TAB PO SCH (08:12)
[2024-06-22] MEDS: MULTIVITAMIN TAB PO SCH (08:13)
[2024-06-22] MEDS: FUROSEMIDE 20 MG TAB PO SCH (08:13)
[2024-06-22] MEDS: CHOLECALCIFEROL 125 MCG (5,000 UNITS) TAB PO SCH (08:13)
[2024-06-22] MEDS: dexAMETHasone 10 MG in SYRINGE 0 ML IV SCH (08:13)
[2024-06-22] MEDS: POTASSIUM CHLORIDE 10 MEQ TABCR PO SCH (08:13)
[2024-06-22] MEDS ORDERED: METOPROLOL SUCC 50MG EXT REL TAB PO SCH (09:00)
--- NOTE | 2024-06-22 09:10 | Orthopedic Progress Note ---
Date of Service June 22, 2024 Assessment & Plan (1) Bilateral primary osteoarthritis of knee: Plan: Postop day 1 right total knee replacement doing well. Patient wants to home health for 2 weeks then outpatient PT. This can be arranged patient be discharged home today. Patient can have Hemovac drain discontinued prior to discharge. Patient needs follow-up in 2 weeks for office visit. Bilateral knee osteoarthritis right greater than left end-stage on right tricompartmental disease. Proceed with right total knee replacement. Possibility may need a more constrained polyethylene to help with stability and cemented stem on the tibia. Admission and Anticipated Discharge Date Admission Date: June 21, 2024 Subjective No complaint feels well Review of Systems Review of Systems: No chest pain shortness of breath calf pain feels well Physical Exam Musculoskeletal: Independent straight leg raise, dressing dry and intact, circulation se nsorimotor exam intact. Close to 90 degrees flexion actively. Results & Data Vital Signs (Past 12 Hours) Vital Signs Temp Pulse Resp BP Pulse Ox O2 Del Method 06/22/24 07:28 36.6 C 61 16 147/79 H 96 Room Air 06/22/24 03:38 36.3 C L 58 L 16 147/85 H 99 Room Air 06/21/24 22:41 36.4 C L 68 18 114/63 96 Room Air Laboratory Results Hemoglobin 12.4, hematocrit 35.7 BUN 18, creatinine 0.86 glucose 117. Diagnostic Findings Well aligned right knee replacement
[2024-06-22] MEDS: METOPROLOL SUCC 50MG EXT REL TAB PO SCH (10:32)
--- NOTE | 2024-06-27 14:37 | Discharge Summary ---
Date of Service June 27, 2024 Admission HPI Per Admitting Provider Patient denies headaches, sweats, fevers, chills, double vision, blurred vision, cough, sore throat, dysphagia, chest pain, sob at rest but had some shortness of breath with running a short distance or mowing or shoveling, wheezing, n/v/d/c, numbness, tingling, fatigue, urinary symptoms, mood disorders. ROS positive for sleep apnea/snoring, abnormal bruising, arthritis multiple areas of the spine, enlarged prostate, patient's father had severe reaction to anesthesia. Principal Diagnosis Right knee osteoarthritis Discharge Data Allergies Allergy/AdvReac Type Severity Reaction Status Date / Time Penicillins Allergy Unknown Unknown Verified 06/21/24 05:38 Sulfa (Sulfonamide Allergy Unknown Rash Verified 06/21/24 05:38 Antibiotics) Consultations 06/15/24 15:25 Consult Hospitalist Routine Procedures Performed Operation Date: 06/21/24 07:00 Actual Procedures p Right Total Knee Arthroplasty(Right) - Brian Seals MD Ordered Studies 06/21/24 05:00 US - OR guided needle placemen Routine Hospital Course (1) Bilateral primary osteoarthritis of knee: Postop day 1 right total knee replacement doing well. Patient wants to home health for 2 weeks then outpatient PT. This can be arranged patient be discharged home today. Patient can have Hemovac drain discontinued prior to discharge. Patient needs follow-up in 2 weeks for office visit. Bilateral knee osteoarthritis right greater than left end-stage on right tricompartmental disease. Proceed with right total knee replacement. Possibility may need a more constrained polyethylene to help with stability and cemented stem on the tibia. Total Time Total Time Spent Total Time Spent (In Minutes): 20 Discharge Plan Discharge Items Patient Disposition: Home - Home Health Services Reason For Visit: Right Knee Degenerative Joint Disease Discharge Diagnosis: Right knee osteoarthritis Activity: Per Instructions section Non-emergency contact: Primary Care Provider and Surgeon Call non-emergency contact if: your pain is not controlled, your pain is worsening and your temperature is above 101 Follow-up/Referrals: Thalia Weinberg NP [Primary Care Provider] - Diet: Regular Addtl Attending Provider Instructions: ACTIVITY RECOMMENDATIONS: SELF CARE INSTRUCTIONS AFTER TOTAL KNEE REPLACEMENT A. You may need to continue a physical therapy program after discharge from the hospital. There are several options available to you. Your doctor will assist you in selecting the best one for you. 1. An out-patient facility 3 times a week for therapy. 2. Home therapy for 1 to 2 weeks with outpatient therapy to follow. 3. Continue working on all exercises taught by physical therapy three times a day for 20 minutes on non-therapy days. Your goals should be to increase the bending of your knee to 90 degrees and beyond and to fully straighten your knee. Ice and elevate knee after exercise. B. Weight as tolerated with a walker or as instructed by your physician. C. It is okay to shower if minimal to no drainage from incision. No Baths. Do not soak wound. D. Make walking a part of your daily routine. Be up as much as comfortable w ith rest periods throughout the day. Rest with leg elevation is very important. Use the ice wrap frequently for the first 3-4 weeks. E. There are no restrictions on activities. 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 F. Wear the long elastic stockings (ANKITA hose) 20 hours a day for one month after surgery. They can be removed several times a day for laundering and when showering. G. You may return to previous diet. H. NATHALY dressing: You have a NATAHLY dressing on your surgical wound. It will remain in place for 7 days from surgery. You will be provided with a booklet with the do's and don'ts with the dressing in place. After 7 days, the dressing may be removed. If there is drainage from the surgical incision, you may cover the wound with dry dressings SPECIAL CARE INSTRUCTIONS: VERY IMPORTANT TO READ AND REVIEW A. Take Coumadin, Xarelto, Aspirin or Lovenox (blood thinning medications) as directed by your doctor. If on Coumadin, have a pro-time (blood test) drawn according to your doctor's instructions. This will tell the doctor how well the Coumadin is thinning your blood. B. There are a few signs you need to watch for after you are home. Call [facility] if you notice any of the followin. Increased severe knee pain. Some pain is expected especially when you exercise. 2. Increased swelling in your leg or knee; pain or swelling of the calf muscle in either lower leg. 3. Any redness or fluid drainage from the incision. 4. Shortness of breath or chest pain. 5. A Temperature of 101 degrees F or greater. C. Please call [facility] at if you have any concerns or questions about your operation or recovery. The doctor or his nurse will return your call promptly. D. You must take antibiotics before dental work, bladder, bowel or other surgery. Your doctor will provide you with a permanent care to carry describing this precaution. FOLLOW UP VISIT: If appointment is not already scheduled: Please call [facility] to make a follow-up appointment for 2 weeks after your surgery at . Pending Studies at Discharge: No Stand-Alone Forms: My [facility], Smoking Cessation Medications and DC Order Prescriptions: New cefadroxil 500 mg capsule 500 mg PO Q12H 14 Days Qty: 28 0RF oxycodone 5 mg tablet 5 mg PO Q4H PRN (Reason: pain) Qty: 20 0RF acetaminophen [Tylenol Extra Strength] 500 mg tablet 1,000 mg PO Q8H Qty: 90 0RF metoprolol succinate 50 mg Tablet Extended Release 24 Hr 50 mg PO QAM Qty: 30 0RF Continued potassium chloride 10 mEq Tablet Extended Release 10 meq PO DAILY tamsulosin 0.4 mg Capsule 0.4 mg PO HS losartan [Cozaar] 25 mg Tablet 25 mg PO QAM furosemide [Lasix] 20 mg Tablet 20 mg PO QAM loratadine 10 mg Tablet 10 mg PO QAM ezetimibe 10 mg Tablet 10 mg PO QAM cholecalciferol (vitamin D3) [Vitamin D3] 125 mcg (5,000 unit) Tablet 125 mcg PO DAILY Eliquis 5 mg Tablet 5 mg PO BID Contrave 8-90 mg Tablet Extended Release 1 tab PO QAM Cosentyx 25 mg/mL Solution 150 mg IV .Q2WK Discontinued metoprolol succinate [Toprol XL] 50 mg Tablet Extended Release 24 Hr 150 mg PO DAILY Admission Data Admit Date/Time: 06/21/24 10:51 Attending Provider: Brian Seals Admit Provider: Brian Seals Primary Care Provider: Thalia Weinberg Other Providers: Milind Johnson Other Interventions: Discharge Summary Assessment (RN) Last Done: 06/22/24 10:19
== END 2024-06-22 11:52 | disposition home health service (06) ==
LOC: 3E 05:18 → ASU 05:18
DX: E66.9 Obesity, unspecified; Z68.41 Body mass index [BMI] 40.0-44.9, adult; Z79.01 Long term (current) use of anticoagulants; I10 Essential (primary) hypertension; M17.11 Unilateral primary osteoarthritis, right knee; Z79.899 Other long term (current) drug therapy; Z88.0 Allergy status to penicillin; G47.33 Obstructive sleep apnea (adult) (pediatric); Z88.2 Allergy status to sulfonamides